=== PATIENT | female | born 1970 | race Caucasian/White ===

== ENCOUNTER 2021-07-14 07:02 | Inpatient (IN) | payer MEDICARE, OTHER ==
[2021-07-14 07:41] LABS: #Lymphocytes 1.2 thou/uL (1.20-3.40); #Monocytes 0.4 thou/uL (0.11-0.59); #Neutrophils 4.4 thou/uL (1.40-6.50); %Basophils 0.1 % (0.0-1.0); %Eosinophils 0.2 % (0.0-10.0); %Lymphocytes 20.2 % (21.0-51.0); %Monocytes 6.1 % (0.0-10.0); %Neutrophils 73.4 % (42.0-75.0); Hemoglobin 13.5 g/dL (12.0-16.0); Mean Corpuscular Hemoglobin 27.2 pg (27.0-31.0); Mean Corpuscular Volume 80.1 fL (78.0-98.0); Mean Platelet Volume 10.3 fL (7.4-10.4); Platelet Count 146 thou/uL (130-400); Red Blood Cell (RBC) Count 4.96 mill/uL (4.20-5.40); White Blood Cell (WBC) Count 5.9 thou/uL (4.8-10.8)
[2021-07-14] MEDS ORDERED: Acetaminophen 500 MG TAB ONE (07:46)
[2021-07-14] MEDS ORDERED: Dexamethasone 4 MG TAB ONE (07:46)
[2021-07-14] MEDS ORDERED: Dexamethasone 10 MG/ML VIAL ONE (07:49)
[2021-07-14] MEDS ORDERED: Albuterol 200 PUFF (6.7GM INHALER) ONE (07:49)
[2021-07-14 08:05] LABS: ALT (SGPT) 17 U/L (8-55); AST (SGOT) 31 U/L (5-34); Albumin 3.7 g/dL (3.5-5.0); Alkaline Phosphatase 105 U/L (40-110); Anion Gap 17 mmol/L (10-20); BUN (Urea Nitrogen) 9 mg/dL (7.0-18.7); Bilirubin, Total 0.5 mg/dL (0.2-1.2); Calc. Creatinine Clearance 0 mL/min (70-130); Calcium 8.7 mg/dL (7.8-10.44); Carbon Dioxide 23 mmol/L (22-29); Chloride 94 mmol/L (98-107); Globulin 3.6 g/dL (2.4-3.5); Potassium 4.5 mmol/L (3.5-5.1); Protein, Total 7.3 g/dL (6.0-8.3); Sodium 129 mmol/L (136-145)
[2021-07-14 08:11] LABS: Glucose 565 mg/dL (70-105)
[2021-07-14] MEDS ORDERED: Insulin Regular 300 UNITS/3 ML VIAL ONE (09:00)
[2021-07-14] MEDS ORDERED: Ondansetron PF 4 MG/2 ML Vial ONE (09:25)
[2021-07-14] MEDS ORDERED: Metoclopramide HCl 10 MG/2 ML VIAL ONE (09:45)
[2021-07-14 11:16] LABS: Troponin I Less than 0.010 ng/mL (< 0.028)
[2021-07-14] MEDS ORDERED: Loperamide HCl 2 MG CAP PO PRN ×2 (11:33)
[2021-07-14] MEDS ORDERED: Dextrose 5% in Water 1,000 ML IV PRN ×2 (11:33→17:45)
[2021-07-14] MEDS ORDERED: Guaifenesin DM 100-10/5 ML UDCUP PO PRN (11:33)
[2021-07-14] MEDS ORDERED: Acetaminophen 325 MG TAB PO PRN (11:33)
[2021-07-14] MEDS ORDERED: Acetaminophen 650 MG Suppository PR PRN (11:33)
[2021-07-14] MEDS ORDERED: Dextrose 50% Abboject 50 ML SYRINGE SLOW IVP PRN ×2 (11:33→17:45)
[2021-07-14] MEDS ORDERED: Enoxaparin Sodium 40 MG/0.4 ML SYRINGE SC SCH (11:45)
[2021-07-14] MEDS ORDERED: HumaLOG 300 UNITS/3 ML VIAL SC PRN ×2 (11:49→17:45)
[2021-07-14] MEDS ORDERED: Albuterol Sulfate 2.5 mg/3 ml Neb NEB PRN (12:02)
[2021-07-14] MEDS ORDERED: Melatonin 3 MG TAB PO PRN (12:04)
[2021-07-14] MEDS ORDERED: Benzonatate 100 MG CAP PO PRN (12:04)
[2021-07-14] MEDS: HumaLOG 300 UNITS/3 ML VIAL SC PRN ×3 (13:55→23:55)
[2021-07-14 14:25] LABS: Troponin I Less than 0.010 ng/mL (< 0.028)
[2021-07-14] MEDS ORDERED: HumaLOG 300 UNITS/3 ML VIAL ONE (14:52)
[2021-07-14] MEDS ORDERED: Lantus 1000 UNITS/10 ML VIAL SC SCH ×2 (17:44→18:00)
[2021-07-14 18:25] LABS: Anion Gap 18 mmol/L (10-20); BUN (Urea Nitrogen) 12 mg/dL (7.0-18.7); Calc. Creatinine Clearance 0 mL/min (70-130); Calcium 8.7 mg/dL (7.8-10.44); Carbon Dioxide 22 mmol/L (22-29); Chloride 96 mmol/L (98-107); Potassium 5.4 mmol/L (3.5-5.1); Sodium 131 mmol/L (136-145)
[2021-07-14 18:35] LABS: Glucose 695 mg/dL (70-105)
[2021-07-14] MEDS ORDERED: Sodium Chloride 0.9% 500 ML IV SCH (19:00)
[2021-07-14] MEDS: Sodium Chloride 0.9% 1,000 ML IV SCH (20:28)
[2021-07-14] MEDS: Famotidine 20 MG TAB PO SCH (21:06)
[2021-07-14] MEDS: Lantus 1000 UNITS/10 ML VIAL SC SCH (21:49)
[2021-07-14] MEDS ORDERED: Zolpidem Tartrate 5 MG TAB PO SCH (22:45)
[2021-07-15] MEDS: Sodium Chloride 0.9% 1,000 ML IV SCH ×2 (00:56→07:54)
[2021-07-15 02:17] VITALS: BMI 39.5
[2021-07-15] MEDS: HumaLOG 300 UNITS/3 ML VIAL SC PRN ×3 (05:06→20:40)
[2021-07-15 06:12] LABS: #Lymphocytes 0.8 thou/uL (1.20-3.40); #Monocytes 0.5 thou/uL (0.11-0.59); #Neutrophils 8.3 thou/uL (1.40-6.50); %Basophils 0.1 % (0.0-1.0); %Eosinophils 0.1 % (0.0-10.0); %Lymphocytes 8.7 % (21.0-51.0); %Neutrophils 86.1 % (42.0-75.0); Hemoglobin 11.8 g/dL (12.0-16.0); Mean Corpuscular HGB CONC 32.8 g/dL (32.0-36.0); Mean Corpuscular Hemoglobin 26.5 pg (27.0-31.0); Mean Corpuscular Volume 80.9 fL (78.0-98.0); Mean Platelet Volume 10.3 fL (7.4-10.4); Platelet Count 159 thou/uL (130-400); RBC Distribution Width 14.1 % (11.5-14.5); Red Blood Cell (RBC) Count 4.45 mill/uL (4.20-5.40); White Blood Cell (WBC) Count 9.6 thou/uL (4.8-10.8)
[2021-07-15 06:37] LABS: ALT (SGPT) 16 U/L (8-55); AST (SGOT) 32 U/L (5-34); Albumin 3.2 g/dL (3.5-5.0); Alkaline Phosphatase 99 U/L (40-110); Anion Gap 13 mmol/L (10-20); BUN (Urea Nitrogen) 14 mg/dL (7.0-18.7); Bilirubin, Total 0.3 mg/dL (0.2-1.2); Calc. Creatinine Clearance 128 mL/min (70-130); Calcium 8.5 mg/dL (7.8-10.44); Carbon Dioxide 25 mmol/L (22-29); Chloride 102 mmol/L (98-107); Globulin 3.4 g/dL (2.4-3.5); Glucose 457 mg/dL (70-105); Potassium 4.8 mmol/L (3.5-5.1); Protein, Total 6.6 g/dL (6.0-8.3); Sodium 135 mmol/L (136-145)
[2021-07-15] MEDS: Lantus 1000 UNITS/10 ML VIAL SC SCH ×2 (07:40→20:39)
[2021-07-15] MEDS: Dexamethasone 4 MG TAB PO SCH (07:41)
[2021-07-15] MEDS: Famotidine 20 MG TAB PO SCH ×2 (07:41→20:39)
[2021-07-15] MEDS: Enoxaparin Sodium 40 MG/0.4 ML SYRINGE SC SCH (07:42)
[2021-07-15] MEDS ORDERED: Insulin Glargine 45 UNITS in Pre-Filled Syringe 1 EACH SC SCH (09:00)
[2021-07-15] MEDS ORDERED: Clopidogrel Bisulfate 75 MG TAB PO SCH (10:00)
[2021-07-15] MEDS ORDERED: Levothyroxine 150 MCG TAB PO SCH (10:00)
[2021-07-15] MEDS ORDERED: DULoxetine 60 MG CAP PO SCH (10:00)
[2021-07-15] MEDS ORDERED: busPIRone HCl 10 MG TAB PO SCH (10:00)
[2021-07-15] MEDS ORDERED: Carvedilol 6.25 MG TAB PO SCH (10:00)
[2021-07-15] MEDS: Clopidogrel Bisulfate 75 MG TAB PO SCH (11:33)
[2021-07-15] MEDS: Gabapentin 300 MG CAP PO SCH ×2 (15:12→20:38)
[2021-07-15] MEDS: Rosuvastatin 20 MG TAB PO SCH (20:38)
[2021-07-15] MEDS: busPIRone HCl 10 MG TAB PO SCH (20:39)
[2021-07-15] MEDS: Carvedilol 6.25 MG TAB PO SCH (20:39)
[2021-07-15] MEDS: Zolpidem Tartrate 5 MG TAB PO SCH (20:42)
[2021-07-15] MEDS ORDERED: REMDESIVIR 100 MG in Sodium Chloride 0.9% 250 ML 230 ML IV SCH (22:00)
[2021-07-16] MEDS: Levothyroxine 150 MCG TAB PO SCH (05:27)
[2021-07-16] MEDS: HumaLOG 300 UNITS/3 ML VIAL SC PRN ×4 (05:27→21:39)
[2021-07-16 06:14] LABS: #Lymphocytes 0.9 thou/uL (1.20-3.40); #Monocytes 0.5 thou/uL (0.11-0.59); #Neutrophils 14.9 thou/uL (1.40-6.50); %Basophils 0.1 % (0.0-1.0); %Eosinophils 0.1 % (0.0-10.0); %Lymphocytes 5.3 % (21.0-51.0); %Monocytes 3.1 % (0.0-10.0); %Neutrophils 91.5 % (42.0-75.0); Hemoglobin 11.4 g/dL (12.0-16.0); Mean Corpuscular HGB CONC 31.8 g/dL (32.0-36.0); Mean Corpuscular Hemoglobin 25.9 pg (27.0-31.0); Mean Corpuscular Volume 81.4 fL (78.0-98.0); Platelet Count 181 thou/uL (130-400); RBC Distribution Width 14.2 % (11.5-14.5); Red Blood Cell (RBC) Count 4.41 mill/uL (4.20-5.40); White Blood Cell (WBC) Count 16.3 thou/uL (4.8-10.8)
[2021-07-16 06:41] LABS: ALT (SGPT) 21 U/L (8-55); AST (SGOT) 43 U/L (5-34); Albumin 3.3 g/dL (3.5-5.0); Alkaline Phosphatase 93 U/L (40-110); Anion Gap 11 mmol/L (10-20); BUN (Urea Nitrogen) 12 mg/dL (7.0-18.7); Bilirubin, Total 0.3 mg/dL (0.2-1.2); Calc. Creatinine Clearance 146 mL/min (70-130); Calcium 8.4 mg/dL (7.8-10.44); Carbon Dioxide 29 mmol/L (22-29); Chloride 100 mmol/L (98-107); Globulin 3.3 g/dL (2.4-3.5); Glucose 319 mg/dL (70-105); Protein, Total 6.6 g/dL (6.0-8.3); Sodium 135 mmol/L (136-145)
[2021-07-16] MEDS: Lantus 1000 UNITS/10 ML VIAL SC SCH ×2 (08:01→21:11)
[2021-07-16] MEDS: Carvedilol 6.25 MG TAB PO SCH ×2 (08:02→21:10)
[2021-07-16] MEDS: Dexamethasone 4 MG TAB PO SCH (08:02)
[2021-07-16] MEDS: busPIRone HCl 10 MG TAB PO SCH ×2 (08:02→21:10)
[2021-07-16] MEDS: Gabapentin 300 MG CAP PO SCH ×3 (08:02→21:11)
[2021-07-16] MEDS: Clopidogrel Bisulfate 75 MG TAB PO SCH (08:03)
[2021-07-16] MEDS: Famotidine 20 MG TAB PO SCH ×2 (08:03→21:10)
[2021-07-16] MEDS: DULoxetine 60 MG CAP PO SCH (08:03)
[2021-07-16] MEDS: Enoxaparin Sodium 40 MG/0.4 ML SYRINGE SC SCH (08:04)
[2021-07-16] MEDS: REMDESIVIR 200 MG in Sodium Chloride 0.9% 250 ML 210 ML IV SCH ×2 (12:32→19:06)
[2021-07-16] MEDS: Rosuvastatin 20 MG TAB PO SCH (21:09)
[2021-07-16] MEDS: Zolpidem Tartrate 5 MG TAB PO SCH (21:09)
[2021-07-17 05:40] LABS: #Lymphocytes 0.7 thou/uL (1.20-3.40); #Monocytes 0.5 thou/uL (0.11-0.59); %Basophils 0.1 % (0.0-1.0); %Eosinophils 0.1 % (0.0-10.0); %Lymphocytes 6.6 % (21.0-51.0); %Monocytes 4.7 % (0.0-10.0); %Neutrophils 88.5 % (42.0-75.0); Mean Corpuscular Volume 81.2 fL (78.0-98.0); Mean Platelet Volume 9.4 fL (7.4-10.4); Platelet Count 197 thou/uL (130-400); RBC Distribution Width 14.1 % (11.5-14.5); Red Blood Cell (RBC) Count 4.64 mill/uL (4.20-5.40); White Blood Cell (WBC) Count 10.2 thou/uL (4.8-10.8)
[2021-07-17 06:04] LABS: ALT (SGPT) 49 U/L (8-55); AST (SGOT) 92 U/L (5-34); Albumin 3.1 g/dL (3.5-5.0); Alkaline Phosphatase 108 U/L (40-110); Anion Gap 12 mmol/L (10-20); BUN (Urea Nitrogen) 13 mg/dL (7.0-18.7); Bilirubin, Total 0.4 mg/dL (0.2-1.2); Calc. Creatinine Clearance 166 mL/min (70-130); Calcium 8.5 mg/dL (7.8-10.44); Carbon Dioxide 27 mmol/L (22-29); Chloride 102 mmol/L (98-107); Globulin 3.3 g/dL (2.4-3.5); Glucose 186 mg/dL (70-105); Potassium 4.1 mmol/L (3.5-5.1); Protein, Total 6.4 g/dL (6.0-8.3); Sodium 137 mmol/L (136-145)
[2021-07-17] MEDS: Levothyroxine 150 MCG TAB PO SCH (06:04)
[2021-07-17] MEDS: HumaLOG 300 UNITS/3 ML VIAL SC PRN ×3 (06:04→18:22)
[2021-07-17] MEDS: busPIRone HCl 10 MG TAB PO SCH ×2 (09:06→21:27)
[2021-07-17] MEDS: DULoxetine 60 MG CAP PO SCH (09:07)
[2021-07-17] MEDS: Dexamethasone 4 MG TAB PO SCH (09:07)
[2021-07-17] MEDS: Famotidine 20 MG TAB PO SCH ×2 (09:08→21:27)
[2021-07-17] MEDS: Gabapentin 300 MG CAP PO SCH ×3 (09:08→21:26)
[2021-07-17] MEDS: Carvedilol 6.25 MG TAB PO SCH ×2 (09:08→21:26)
[2021-07-17] MEDS: Enoxaparin Sodium 40 MG/0.4 ML SYRINGE SC SCH (09:09)
[2021-07-17] MEDS: Lantus 1000 UNITS/10 ML VIAL SC SCH ×2 (09:09→21:27)
[2021-07-17] MEDS: Zolpidem Tartrate 5 MG TAB PO SCH (21:26)
[2021-07-17] MEDS: Rosuvastatin 20 MG TAB PO SCH (21:27)
[2021-07-18 06:00] LABS: #Lymphocytes 0.9 thou/uL (1.20-3.40); #Monocytes 0.6 thou/uL (0.11-0.59); #Neutrophils 7.9 thou/uL (1.40-6.50); %Basophils 0.1 % (0.0-1.0); %Eosinophils 0.2 % (0.0-10.0); %Lymphocytes 9.9 % (21.0-51.0); %Monocytes 6.5 % (0.0-10.0); %Neutrophils 83.3 % (42.0-75.0); Hemoglobin 12.1 g/dL (12.0-16.0); Mean Corpuscular HGB CONC 34.5 g/dL (32.0-36.0); Mean Corpuscular Hemoglobin 27.9 pg (27.0-31.0); Mean Corpuscular Volume 80.9 fL (78.0-98.0); Mean Platelet Volume 9.2 fL (7.4-10.4); Platelet Count 194 thou/uL (130-400); Red Blood Cell (RBC) Count 4.35 mill/uL (4.20-5.40); White Blood Cell (WBC) Count 9.5 thou/uL (4.8-10.8)
[2021-07-18] MEDS: Levothyroxine 150 MCG TAB PO SCH (06:07)
[2021-07-18 06:20] LABS: ALT (SGPT) 54 U/L (8-55); AST (SGOT) 52 U/L (5-34); Albumin 3.1 g/dL (3.5-5.0); Alkaline Phosphatase 105 U/L (40-110); Anion Gap 14 mmol/L (10-20); BUN (Urea Nitrogen) 13 mg/dL (7.0-18.7); Bilirubin, Total 0.4 mg/dL (0.2-1.2); Calc. Creatinine Clearance 162 mL/min (70-130); Calcium 8.1 mg/dL (7.8-10.44); Carbon Dioxide 28 mmol/L (22-29); Chloride 100 mmol/L (98-107); Globulin 2.7 g/dL (2.4-3.5); Glucose 157 mg/dL (70-105); Protein, Total 5.8 g/dL (6.0-8.3); Sodium 138 mmol/L (136-145)
[2021-07-18] MEDS ORDERED: Amlodipine 5 MG TAB PO SCH (09:00)
[2021-07-18] MEDS: Gabapentin 300 MG CAP PO SCH ×3 (09:10→21:00)
[2021-07-18] MEDS: Clopidogrel Bisulfate 75 MG TAB PO SCH (09:11)
[2021-07-18] MEDS: Losartan 25 MG TAB PO SCH (09:11)
[2021-07-18] MEDS: busPIRone HCl 10 MG TAB PO SCH ×2 (09:11→21:02)
[2021-07-18] MEDS: Dexamethasone 4 MG TAB PO SCH (09:11)
[2021-07-18] MEDS: DULoxetine 60 MG CAP PO SCH (09:11)
[2021-07-18] MEDS: Famotidine 20 MG TAB PO SCH ×2 (09:12→21:35)
[2021-07-18] MEDS: Carvedilol 6.25 MG TAB PO SCH ×2 (09:12→21:02)
[2021-07-18] MEDS: Enoxaparin Sodium 40 MG/0.4 ML SYRINGE SC SCH ×2 (09:13→21:03)
[2021-07-18] MEDS: Lantus 1000 UNITS/10 ML VIAL SC SCH ×2 (09:15→21:47)
[2021-07-18] MEDS: HumaLOG 300 UNITS/3 ML VIAL SC PRN ×2 (17:08→21:45)
[2021-07-18] MEDS: Rosuvastatin 20 MG TAB PO SCH (20:59)
[2021-07-18] MEDS: Zolpidem Tartrate 5 MG TAB PO SCH (21:02)
[2021-07-19] MEDS: Levothyroxine 150 MCG TAB PO SCH (05:39)
[2021-07-19] MEDS: HumaLOG 300 UNITS/3 ML VIAL SC PRN ×4 (06:01→21:09)
[2021-07-19 06:29] LABS: #Monocytes 0.7 thou/uL (0.11-0.59); #Neutrophils 6.5 thou/uL (1.40-6.50); %Basophils 0.3 % (0.0-1.0); %Eosinophils 0.2 % (0.0-10.0); %Lymphocytes 11.7 % (21.0-51.0); %Monocytes 8.3 % (0.0-10.0); %Neutrophils 79.5 % (42.0-75.0); Hemoglobin 12.7 g/dL (12.0-16.0); Mean Corpuscular Hemoglobin 26.8 pg (27.0-31.0); Mean Corpuscular Volume 81.3 fL (78.0-98.0); Mean Platelet Volume 9.1 fL (7.4-10.4); Platelet Count 234 thou/uL (130-400); Red Blood Cell (RBC) Count 4.74 mill/uL (4.20-5.40); White Blood Cell (WBC) Count 8.2 thou/uL (4.8-10.8)
[2021-07-19 07:00] LABS: ALT (SGPT) 46 U/L (8-55); AST (SGOT) 28 U/L (5-34); Albumin 3.1 g/dL (3.5-5.0); Alkaline Phosphatase 103 U/L (40-110); Anion Gap 14 mmol/L (10-20); BUN (Urea Nitrogen) 13 mg/dL (7.0-18.7); Bilirubin, Total 0.5 mg/dL (0.2-1.2); Calc. Creatinine Clearance 151 mL/min (70-130); Calcium 8.6 mg/dL (7.8-10.44); Carbon Dioxide 30 mmol/L (22-29); Chloride 96 mmol/L (98-107); Globulin 3.3 g/dL (2.4-3.5); Glucose 249 mg/dL (70-105); Potassium 4.5 mmol/L (3.5-5.1); Protein, Total 6.4 g/dL (6.0-8.3); Sodium 135 mmol/L (136-145)
[2021-07-19] MEDS: Famotidine 20 MG TAB PO SCH ×2 (08:23→21:07)
[2021-07-19] MEDS: busPIRone HCl 10 MG TAB PO SCH ×2 (08:23→21:06)
[2021-07-19] MEDS: Enoxaparin Sodium 40 MG/0.4 ML SYRINGE SC SCH ×2 (08:23→21:08)
[2021-07-19] MEDS: Gabapentin 300 MG CAP PO SCH ×3 (08:24→21:06)
[2021-07-19] MEDS: DULoxetine 60 MG CAP PO SCH (08:24)
[2021-07-19] MEDS: Carvedilol 6.25 MG TAB PO SCH ×2 (08:25→21:07)
[2021-07-19] MEDS: Clopidogrel Bisulfate 75 MG TAB PO SCH (08:25)
[2021-07-19] MEDS: Losartan 25 MG TAB PO SCH (08:25)
[2021-07-19] MEDS: Dexamethasone 4 MG TAB PO SCH (08:26)
[2021-07-19] MEDS: Lantus 1000 UNITS/10 ML VIAL SC SCH ×2 (09:47→21:08)
[2021-07-19] MEDS: Zolpidem Tartrate 5 MG TAB PO SCH (21:06)
[2021-07-19] MEDS: Rosuvastatin 20 MG TAB PO SCH (21:07)
[2021-07-20] MEDS: HumaLOG 300 UNITS/3 ML VIAL SC PRN ×4 (05:46→20:30)
[2021-07-20] MEDS: Levothyroxine 150 MCG TAB PO SCH (05:46)
[2021-07-20 08:24] LABS: #Eosinphils 0.1 thou/uL (0.0-0.7); #Lymphocytes 1.9 thou/uL (1.20-3.40); #Monocytes 0.9 thou/uL (0.11-0.59); #Neutrophils 7.6 thou/uL (1.40-6.50); %Basophils 0.1 % (0.0-1.0); %Eosinophils 0.7 % (0.0-10.0); %Monocytes 8.3 % (0.0-10.0); %Neutrophils 72.9 % (42.0-75.0); Hemoglobin 12.9 g/dL (12.0-16.0); Mean Corpuscular HGB CONC 32.1 g/dL (32.0-36.0); Mean Corpuscular Hemoglobin 25.8 pg (27.0-31.0); Mean Corpuscular Volume 80.5 fL (78.0-98.0); Mean Platelet Volume 9.1 fL (7.4-10.4); Platelet Count 291 thou/uL (130-400); Red Blood Cell (RBC) Count 4.99 mill/uL (4.20-5.40); White Blood Cell (WBC) Count 10.4 thou/uL (4.8-10.8)
[2021-07-20] MEDS: Enoxaparin Sodium 40 MG/0.4 ML SYRINGE SC SCH ×2 (08:31→20:30)
[2021-07-20] MEDS: Dexamethasone 4 MG TAB PO SCH (08:32)
[2021-07-20] MEDS: DULoxetine 60 MG CAP PO SCH (08:32)
[2021-07-20] MEDS: Carvedilol 6.25 MG TAB PO SCH ×2 (08:33→20:29)
[2021-07-20] MEDS: Losartan 25 MG TAB PO SCH (08:33)
[2021-07-20] MEDS: Gabapentin 300 MG CAP PO SCH ×3 (08:34→20:29)
[2021-07-20] MEDS: Famotidine 20 MG TAB PO SCH ×2 (08:34→20:29)
[2021-07-20] MEDS: busPIRone HCl 10 MG TAB PO SCH ×2 (08:34→20:29)
[2021-07-20] MEDS: Clopidogrel Bisulfate 75 MG TAB PO SCH (08:34)
[2021-07-20] MEDS: Lantus 1000 UNITS/10 ML VIAL SC SCH ×2 (08:35→20:30)
[2021-07-20 08:47] LABS: ALT (SGPT) 34 U/L (8-55); AST (SGOT) 24 U/L (5-34); Albumin 3.2 g/dL (3.5-5.0); Alkaline Phosphatase 98 U/L (40-110); Anion Gap 13 mmol/L (10-20); BUN (Urea Nitrogen) 13 mg/dL (7.0-18.7); Bilirubin, Total 0.5 mg/dL (0.2-1.2); Calc. Creatinine Clearance 171 mL/min (70-130); Calcium 8.3 mg/dL (7.8-10.44); Carbon Dioxide 27 mmol/L (22-29); Chloride 97 mmol/L (98-107); Globulin 3.2 g/dL (2.4-3.5); Glucose 109 mg/dL (70-105); Potassium 3.8 mmol/L (3.5-5.1); Protein, Total 6.4 g/dL (6.0-8.3); Sodium 133 mmol/L (136-145)
[2021-07-20] MEDS: Rosuvastatin 20 MG TAB PO SCH (20:28)
[2021-07-20] MEDS: Zolpidem Tartrate 5 MG TAB PO SCH (20:29)
[2021-07-21] MEDS: Levothyroxine 150 MCG TAB PO SCH (06:17)
[2021-07-21] MEDS: HumaLOG 300 UNITS/3 ML VIAL SC PRN ×4 (06:17→21:20)
[2021-07-21 06:57] LABS: #Eosinphils 0.1 thou/uL (0.0-0.7); #Lymphocytes 1.6 thou/uL (1.20-3.40); #Neutrophils 7.5 thou/uL (1.40-6.50); %Basophils 0.1 % (0.0-1.0); %Lymphocytes 15.8 % (21.0-51.0); %Monocytes 9.4 % (0.0-10.0); %Neutrophils 73.7 % (42.0-75.0); Hemoglobin 11.8 g/dL (12.0-16.0); Mean Corpuscular Hemoglobin 25.8 pg (27.0-31.0); Mean Corpuscular Volume 80.6 fL (78.0-98.0); Mean Platelet Volume 9.2 fL (7.4-10.4); Platelet Count 286 thou/uL (130-400); Red Blood Cell (RBC) Count 4.57 mill/uL (4.20-5.40); White Blood Cell (WBC) Count 10.2 thou/uL (4.8-10.8)
[2021-07-21 07:27] LABS: ALT (SGPT) 30 U/L (8-55); AST (SGOT) 24 U/L (5-34); Albumin 3.1 g/dL (3.5-5.0); Alkaline Phosphatase 105 U/L (40-110); Anion Gap 14 mmol/L (10-20); BUN (Urea Nitrogen) 16 mg/dL (7.0-18.7); Bilirubin, Total 0.4 mg/dL (0.2-1.2); Calc. Creatinine Clearance 151 mL/min (70-130); Calcium 8.4 mg/dL (7.8-10.44); Carbon Dioxide 26 mmol/L (22-29); Chloride 97 mmol/L (98-107); Globulin 3.2 g/dL (2.4-3.5); Glucose 317 mg/dL (70-105); Potassium 3.9 mmol/L (3.5-5.1); Protein, Total 6.3 g/dL (6.0-8.3); Sodium 133 mmol/L (136-145)
[2021-07-21 08:35] VITALS: TEMP 98.2
[2021-07-21] MEDS: Carvedilol 6.25 MG TAB PO SCH ×2 (09:04→21:15)
[2021-07-21] MEDS: Clopidogrel Bisulfate 75 MG TAB PO SCH (09:04)
[2021-07-21] MEDS: busPIRone HCl 10 MG TAB PO SCH ×2 (09:04→21:14)
[2021-07-21] MEDS: DULoxetine 60 MG CAP PO SCH (09:04)
[2021-07-21] MEDS: Losartan 25 MG TAB PO SCH (09:05)
[2021-07-21] MEDS: Enoxaparin Sodium 40 MG/0.4 ML SYRINGE SC SCH ×2 (09:05→21:16)
[2021-07-21] MEDS: metFORMIN 500 MG TAB PO SCH ×3 (09:05→21:16)
[2021-07-21] MEDS: Dexamethasone 4 MG TAB PO SCH (09:05)
[2021-07-21] MEDS: Famotidine 20 MG TAB PO SCH ×2 (09:05→21:16)
[2021-07-21] MEDS: Gabapentin 300 MG CAP PO SCH ×3 (09:05→21:14)
[2021-07-21] MEDS: Lantus 1000 UNITS/10 ML VIAL SC SCH ×2 (09:06→21:16)
[2021-07-21] MEDS ORDERED: Iopamidol-370 76% 500 ML 1 ML ONE (09:59)
[2021-07-21] MEDS ORDERED: Mirtazapine 15 MG TAB PO SCH (21:00)
[2021-07-21] MEDS: Rosuvastatin 20 MG TAB PO SCH (21:15)
[2021-07-21] MEDS: Zolpidem Tartrate 5 MG TAB PO SCH (21:16)
[2021-07-22] MEDS: Levothyroxine 150 MCG TAB PO SCH (05:21)
[2021-07-22] MEDS: HumaLOG 300 UNITS/3 ML VIAL SC PRN ×3 (05:21→16:50)
[2021-07-22] MEDS: Carvedilol 6.25 MG TAB PO SCH (08:08)
[2021-07-22] MEDS: DULoxetine 60 MG CAP PO SCH (08:08)
[2021-07-22] MEDS: Gabapentin 300 MG CAP PO SCH ×2 (08:08→14:14)
[2021-07-22] MEDS: metFORMIN 500 MG TAB PO SCH ×2 (08:08→14:14)
[2021-07-22] MEDS: Dexamethasone 4 MG TAB PO SCH (08:08)
[2021-07-22] MEDS: Enoxaparin Sodium 40 MG/0.4 ML SYRINGE SC SCH (08:08)
[2021-07-22] MEDS: busPIRone HCl 10 MG TAB PO SCH (08:09)
[2021-07-22] MEDS: Losartan 25 MG TAB PO SCH (08:09)
[2021-07-22] MEDS: Famotidine 20 MG TAB PO SCH (08:09)
[2021-07-22] MEDS: Clopidogrel Bisulfate 75 MG TAB PO SCH (08:09)
[2021-07-22] MEDS: Lantus 1000 UNITS/10 ML VIAL SC SCH (08:10)
[2021-07-22 08:15] VITALS: BP 127/79
== END 2021-07-22 18:06 | disposition home or self-care (01) | DRG 177 ==
LOC: ERS 07:02 → ERHOLD 09:35 → T4-A 18:17
PROVIDERS: ADMIT Internal Medicine; ATTEND Internal Medicine
PROC: 8E0ZXY6 Isolation (ICD-10-PCS; principal; 2021-07-14)
PROC: XW033E5 Introduction of Remdesivir Anti-infective into Peripheral Vein, Percutaneous Approach, New Technology Group 5 (ICD-10-PCS; 2021-07-14)
DX: U07.1 COVID-19 (principal); J12.82 Pneumonia due to coronavirus disease 2019; J96.01 Acute respiratory failure with hypoxia; E66.9 Obesity, unspecified; E11.69 Type 2 diabetes mellitus with other specified complication; I25.10 Atherosclerotic heart disease of native coronary artery without angina pectoris; E03.9 Hypothyroidism, unspecified; E78.5 Hyperlipidemia, unspecified; F41.9 Anxiety disorder, unspecified; F32.9 Major depressive disorder, single episode, unspecified; E11.65 Type 2 diabetes mellitus with hyperglycemia; R19.7 Diarrhea, unspecified; Z68.39 Body mass index [BMI] 39.0-39.9, adult; Z98.51 Tubal ligation status; Z88.5 Allergy status to narcotic agent; Z79.890 Hormone replacement therapy; Z79.4 Long term (current) use of insulin; Z95.5 Presence of coronary angioplasty implant and graft
CPT/HCPCS: 36415; 36416; 70491; 71045; 80053; 82728; 83880; 84484; 85025; 86140; 93005; 96374; 96375; J1100; J1650; J1815; J2405; J2765; J8540; Q9967